=== PATIENT | male | born 1960 | race Caucasian/White ===

== ENCOUNTER → 2022-12-16 17:10 | Outpatient (CLI) | payer BC, SELFPAY ==
--- NOTE | 2022-12-16 | DI.MRI.S_ITS ---
PROCEDURE: MR SHOULDER LT WO CON INDICATIONS: LEFT SHOULDER PAIN TECHNIQUE: Noncontrast oblique coronal T2 fast spin echo with fat saturation, oblique sagittal T1 spin echo and T2 fast spin echo with fat saturation, axial T1 spin echo and T2 fast spin echo with fat saturation through the shoulder. COMPARISON: Merged With [facility], CR, XR SHOULDER 2+ VIEWS LEFT, 11/29/2022, 10:53. FINDINGS: Image quality: Excellent. Rotator cuff: There is full-thickness tearing of the entire supraspinatus and infraspinatus tendons which demonstrate medial retraction and atrophy. There is full-thickness tearing of the upper subscapularis tendon at the humeral insertion site. Moderate grade articular surface tearing of the mid/lower subscapularis tendon at the humeral insertion site extending to the musculotendinous junction. Subscapularis atrophy is present. Teres minor is intact. Bones and bursae: No acute bone marrow contusions or fractures. Chronic appearing fragmentation of the distal acromion. Instrumentation tracts within the humeral head. There is widening of the acromioclavicular interval to 16 mm. No pathologic subacromial-subdeltoid or subcoracoid bursal fluid is present. Capsule and soft tissues: Degenerative fraying of the glenoid labrum is present. Full-thickness tearing of the biceps tendon is present. The rotator interval appears normal, without fibrosis. The coracohumeral ligament is normal in thickness. IMPRESSION: 1. Postsurgical sequelae. 2. Full-thickness tearing and atrophy of the subscapularis, supraspinatus, and infraspinatus tendons as described above. 3. Acromioclavicular separation. 4. 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 Dictated by: Jeff Melgoza M.D. on 12/17/2022 at 11:39 Approved by: Jeff Melgoza M.D. on 12/17/2022 at 11:42
== END ==
PROVIDERS: Referring Provider Orthopaedic Surgery; Visit Provider Orthopaedic Surgery
DX: M75.122 Complete rotator cuff tear or rupture of left shoulder, not specified as traumatic (principal); M67.912 Unspecified disorder of synovium and tendon, left shoulder; M25.512 Pain in left shoulder; S42.122 Displaced fracture of acromial process, left shoulder
CPT/HCPCS: 73221